=== PATIENT | female | born 1990 | race Caucasian/White ===

== ENCOUNTER 2017-01-21 09:47 | Emergency (ER) | payer OTHER ==
--- NOTE | 2017-01-21 10:51 | ED ORDER SUMMARY ---
..... Patient: FRANCOIS GRACE OrderSheet [facility] VisitID: [id number] [address] [place] [address] 26y, F Registration Date/Time: 01/21/2017 ORDER SHEET Weight: 95.2 kg (stated) Allergies: Amoxicillin, Clindamycin GENERAL ORDERS: Foot 3V Right Urgent (10:08 01/21/2017 Fernie Kevin) (Ack 10:12 Marla) (10:22 Marla) Ice (10:09 01/21/2017 Fernie Kevin) (10:10 Shiloh Chisholm.N.) Crutches (11:07 01/21/2017 Fernie Kevin) (11:08 Olga Chisholm.Asaf.) MEDICATION ORDERS: IV FLUIDS: ORDER SHEET NOTES: [Electronically signed by Amee Davis R.N. (11:16 01/21/2017)] [Electronically signed by Nikolay Sam Dr. (20:49 01/24/2017)] [Electronically locked/signed by Amee Davis R.N. (11:16 01/21/2017)]
--- NOTE | 2017-01-21 10:51 | ED CLINICAL REPORT ---
Clinical Report - Physicians/Mid Levels [facility] [address] [place] [address] 01/21/2017 9:49 Patient: FRANCOIS GRACE Time Seen: 1000. Arrived- By private vehicle. Historian- patient. HISTORY OF PRESENT ILLNESS Chief Complaint: Injury to the right foot. The injury happened yesterday. Fell down 2 stairs while standing. Occurred at home. ( accidentally kicked plastic file cabinet then fell down stairs. No LOC. No n/v, head injury or pain/injury to any other part of her body.). Patient is experiencing moderate pain. Patient denies injury to the head or neck. No other injury. REVIEW OF SYSTEMS The patient complains of pain on weight bearing. No tingling, weakness, numbness, suspected foreign body or skin laceration. All systems otherwise negative, except as recorded above. PAST HISTORY See nurses notes. Tetanus immunization status is up-to-date. SOCIAL HISTORY Never smoker. No alcohol use or drug use. No recent travel. 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 ADDITIONAL NOTES The nursing notes have been reviewed. PHYSICAL EXAM Vital Signs: 01/21/2017 09:57 BP: 128/79. HR: 72. RR: 18. O2 saturation: 98%. Temp: 99 F. Blood pressure normal. Oxygen saturation normal. Appearance: Alert. Oriented X3. No acute distress. Head: Head atraumatic. Eyes: Pupils equal, round and reactive to light. Eyes normal inspection. ENT: Ears normal. Nose normal. Pharynx normal. Neck: Normal inspection. Neck supple. C-spine non-tender. CVS: Normal heart rate and rhythm. Heart sounds normal. Pulses normal. Respiratory: No respiratory distress. Breath sounds normal. Chest nontender. Abdomen: No visible injury. Soft and nontender. Bowel sounds normal. No mass. Back: Normal inspection. No tenderness. ROM normal. Extremities: (mild tenderness to the distal dorsal foot over the 2 - 3 digits. no crepitus. no julian abnormalities, discoloration. Skin intact. Cap refill < 3 sec. Sensation intact. ROM normal but with some discomfort.). Neuro, Vascular and Tendons: Vascular status intact. Sensation intact. Motor intact. Tendon function intact. LABS, X-RAYS, AND EKG Rt Foot X-ray: (PROCEDURE: XR FOOT 3 VIEWS - RIGHT INDICATION: TRAUMA/INJURY TECHNIQUE: Three views. COMPARISON: None. FINDINGS: Osseous structures and joint spaces are normal. IMPRESSION: 1. Normal right foot.). Views: 3 view foot series. Technique: good. The X-rays were independently viewed by me, interpreted by the radiologist and discussed with the radiologist. PROGRESS AND PROCEDURES Course of Care: the patient is a pleasant 26 year old female presented for evaluation of right-sided foot pain. Differential diagnosis includesdislocation, fracture, or sprain. Patient is agreeable to the treatment plan. Pain medication has been offered. Radiographs ordered for thepatient'sinjury. Patient's workup does not show any acute osseous abnormalities. Had discussion patient in regards to symptoms here in the emergency department as well as workup, diagnosis as well as home care and follow-up as well as return precautions. All cultures have been answered. The patient expressed understanding of these instructions and was agreeable to them. Prior to patient's discharge is noted to be neurovascularly intact. No acute other maladies. Patient is resting in bed and in no acute distress. Patient is stable outpatient candidate. Disposition: Discharged. Condition: good. CLINICAL IMPRESSION 01/21/2017 09:57 BP: 128/79. HR: 72. RR: 18. O2 saturation: 98%. Temp: 99 F. Sprain (acute). INSTRUCTIONS Warnings: GENERAL WARNINGS: Return or contact your physician immediately if your condition worsens or changes unexpectedly, if not improving as expected, or if other problems arise. Specifically return if pain, vomiting, bleeding, breathing difficulty or fever. Your Current Medications: CONTINUE TAKING THE FOLLOWING MEDICATIONS: None*. OTC Medications: Acetaminophen (available over the counter): take according to label instructions. Motrin (available over the counter): take according to label instructions. Follow-up: Return to the emergency department as needed. Follow up with your doctor in three days. Reason for referral: recheck today's concerns. Summary of care provided to patient via paper. Screening today revealed the patient's blood pressure to be in the normal range. The patient should follow up with a primary care provider for blood pressure management. Understanding of the discharge instructions verbalized by patient. (Electronically signed by Nikolay Sam Dr. 01/24/2017 20:49) Chaka fernandez LESLYFRANCOIS VisitID: [id number] Date: 01/21/2017 01/21/2017 11:48 Patient fit with new crutches. Crutch training performed by tech; the patient demonstrated proper use (Electronically signed by Jessica Morris 01/21/2017 11:48)
--- NOTE | 2017-01-21 10:51 | ED NURSING NOTES ---
Clinical Report - Nurses [place] [address] [place] [address] 01/21/2017 9:49 [id number] TRI[facility] Triage time 09:57 Jan 21 2017. Acuity: LEVEL 3. Chief Complaint: INJURY TO RIGHT FOOT. GIANNA COMA SCORE: [place] Coma Scale: 15- eyes open spontaneously (4); best verbal response- oriented x 4 (5); best motor response- obeys commands (6). --10:03 Cristiano Rudolph R.N. 09:57 01/21/17. BP: 128/79. HR: 72. RR: 18. O2 saturation: 98%. Temp: 99 F. Pain level now 02/01. --10:03 Cristiano Rudolph R.N. Weight: 95.2 kg stated. Height/Length: 65 inches Per Patient. BMI: 35. --10:02 Cristiano Rudolph R.N. Medications None. --09:59 Cristiano Rudolph R.N. Allergies Amoxicillin. Clindamycin. --09:59 Cristiano Rudolph R.N. History Arrived by private vehicle. Historian: patient. Accompanied by family. Primary physician ([facility]). This occurred last night. Occurred at home. Mechanism of injury: fell. ( Kicked a plastic filing cabinet and hurt toes then tripped over a stair from the pain and hurt the top of her foot.). She has had trouble walking. The patient has been limping when trying to walk. No numbness, tingling, weakness, neck pain or back pain. Treatment CHARTERED ACCOUNTANT: None. PAST MEDICAL HX: Tetanus status: up-to-date. Immunizations: up-to-date. SOCIAL HX: Smoker- current status unknown. No alcohol use or drug use. SELF HARM ASSESSMENT: A self harm assessment was performed. The patient answered "no" to the question "Have you recently felt down, depressed, or hopeless?" and "Do you have thoughts of harming or killing yourself?". FALL RISK ASSESSMENT: Fall risk assessment completed. No fall risk identified. NUTRITIONAL RISK ASSESSMENT: The nutritional risk assessment revealed no deficiencies. FUNCTIONAL ASSESSMENT: Functional assessment: no impairments noted. LEARNING NEEDS ASSESSMENT: The learning needs assessment revealed no barriers. ABUSE ASSESSMENT: Abuse assessment: (yes) The patient was asked "Do you feel safe in your home?". SKIN INTEGRITY ASSESSMENT: Skin integrity risk assessment completed. No skin integrity risk identified. --10: Cristiano Rudolph R.N. PROBLEMS: Lumbar Strain. --:59 Cristiano Rudolph R.N. ADDITIONAL SURGERIES: . IUD went into liver. Tubal Ligation. --: Cristiano Rudolph R.N. Interventions ID band on patient. --10: Cristiano Rudolph R.N. PHYSICAL ASSESSMENT Ambulatory to room. GENERAL / NEURO / PSYCH: Oriented X 4. Appears in pain. EXTREMITIES: Capillary refill is less than 2 seconds in the extremities. Extremity pulses are within normal limits. Extremities exhibit normal ROM. Pain with weight bearing. Neuro-vascular status intact to the extremity. Right foot: tenderness. SKIN: Skin intact. Skin is warm and dry. --10:04 Cristiano Rudolph R.N. NURSING PROGRESS NOTES Cold pack applied. Extremity elevated. Reassurance given. Call light placed in reach. Side rails up x 1. Bed placed in lowest position. --10:04 Cristiano Rudolph R.N. DISPOSITION / DISCHARGE Departure time: 11:12 Jan 21 2017. Condition at departure: improved. No learning barriers present. Discharge instructions provided and reviewed with the patient. Reviewed crutch walking instructions. Patient verbalized understanding. Written instructions provided in Syriac. The patient was discharged by the physician. She was discharged home and accompanied by son. She left the Emergency Department ambulatory and via private vehicle. Patient driving. ( Patient has no further questions, she was fitted to her crutches). --11:12 Amee Davis R.N. 11:08 01/21/17. BP: 130/89 (regular adult cuff) taken on the left arm, while sitting. HR: 85. RR: 16 (regular). O2 saturation: 99% on room air. Temp: 98.4 F (oral). Pain level now: 02/01. --11:12 Amee Davis R.N. Locked/Released at 01/21/2017 11:16 by Amee Davis R.N.
--- NOTE | 2017-01-21 10:51 | ED NURSING NOTES ---
Clinical Report - Nurses [place] [address] [place] [address] 01/21/2017 9:49 [id number] Triage time 09:57 Jan 21 2017. Acuity: LEVEL 3. Chief Complaint: INJURY TO RIGHT FOOT. GIANNA COMA SCORE: [place] Coma Scale: 15- eyes open spontaneously (4); best verbal response- oriented x 4 (5); best motor response- obeys commands (6). --10:03 Cristiano Rudolph R.N. 09:57 01/21/17. BP: 128/79. HR: 72. RR: 18. O2 saturation: 98%. Temp: 99 F. Pain level now 02/01. --10:03 Cristiano Rudolph R.N. Weight: 95.2 kg stated. Height/Length: 65 inches Per Patient. BMI: 35. --10:02 Cristiano Rudolph R.N. Medications None. --09:59 Cristiano Rudolph R.N. Allergies Amoxicillin. Clindamycin. --09:59 Cristiano Rudolph R.N. History Arrived by private vehicle. Historian: patient. Accompanied by family. Primary physician ([facility] [facility]). This occurred last night. Occurred at home. Mechanism of injury: fell. ( Kicked a plastic filing cabinet and hurt toes then tripped over a stair from the pain and hurt the top of her foot.). She has had trouble walking. The patient has been limping when trying to walk. No numbness, tingling, weakness, neck pain or back pain. Treatment MOBILE DEVICE DEVELOPER: None. PAST MEDICAL HX: Tetanus status: up-to-date. Immunizations: up-to-date. SOCIAL HX: Smoker- current status unknown. No alcohol use or drug use. SELF HARM ASSESSMENT: A self harm assessment was performed. The patient answered "no" to the question "Have you recently felt down, depressed, or hopeless?" and "Do you have thoughts of harming or killing yourself?". FALL RISK ASSESSMENT: Fall risk assessment completed. No fall risk identified. NUTRITIONAL RISK ASSESSMENT: The nutritional risk assessment revealed no deficiencies. FUNCTIONAL ASSESSMENT: Functional assessment: no impairments noted. LEARNING NEEDS ASSESSMENT: The learning needs assessment revealed no barriers. ABUSE ASSESSMENT: Abuse assessment: (yes) The patient was asked "Do you feel safe in your home?". SKIN INTEGRITY ASSESSMENT: Skin integrity risk assessment completed. No skin integrity risk identified. --10: Cristiano Rudolph R.N. PROBLEMS: Lumbar Strain. --:59 Cristiano Rudolph R.N. ADDITIONAL SURGERIES: . IUD went into liver. Tubal Ligation. --: Cristiano Rudolph R.N. Interventions ID band on patient. --10: Cristiano Rudolph R.N. PHYSICAL ASSESSMENT Ambulatory to room. GENERAL / NEURO / PSYCH: Oriented X 4. Appears in pain. EXTREMITIES: Capillary refill is less than 2 seconds in the extremities. Extremity pulses are within normal limits. Extremities exhibit normal ROM. Pain with weight bearing. Neuro-vascular status intact to the extremity. Right foot: tenderness. SKIN: Skin intact. Skin is warm and dry. --10:04 Cristiano Rudolph R.N. NURSING PROGRESS NOTES Cold pack applied. Extremity elevated. Reassurance given. Call light placed in reach. Side rails up x 1. Bed placed in lowest position. --10:04 Cristiano Rudolph R.N. DISPOSITION / DISCHARGE Departure time: 11:12 Jan 21 2017. Condition at departure: improved. No learning barriers present. Discharge instructions provided and reviewed with the patient. Reviewed crutch walking instructions. Patient verbalized understanding. Written instructions provided in Lao. The patient was discharged by the physician. She was discharged home and accompanied by son. She left the Emergency Department ambulatory and via private vehicle. Patient driving. ( Patient has no further questions, she was fitted to her crutches). --11:12 Amee Davis R.N. 11:08 01/21/17. BP: 130/89 (regular adult cuff) taken on the left arm, while sitting. HR: 85. RR: 16 (regular). O2 saturation: 99% on room air. Temp: 98.4 F (oral). Pain level now: 02/01. --11:12 Amee Davis R.N. Locked/Released at 01/21/2017 11:16 by Amee Davis R.N.
--- NOTE | 2017-01-21 10:51 | ED CLINICAL REPORT ---
Clinical Report - Physicians/Mid Levels [facility] [address] [place] [address] 01/21/2017 9:49 Patient: FRANCOIS GRACE Time Seen: 1000. Arrived- By private vehicle. Historian- patient. HISTORY OF PRESENT ILLNESS Chief Complaint: Injury to the right foot. The injury happened yesterday. Fell down 2 stairs while standing. Occurred at home. ( accidentally kicked plastic file cabinet then fell down stairs. No LOC. No n/v, head injury or pain/injury to any other part of her body.). Patient is experiencing moderate pain. Patient denies injury to the head or neck. No other injury. REVIEW OF SYSTEMS The patient complains of pain on weight bearing. No tingling, weakness, numbness, suspected foreign body or skin laceration. All systems otherwise negative, except as recorded above. PAST HISTORY See nurses notes. Tetanus immunization status is up-to-date. SOCIAL HISTORY Never smoker. No alcohol use or drug use. No recent travel. 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 ADDITIONAL NOTES The nursing notes have been reviewed. PHYSICAL EXAM Vital Signs: 01/21/2017 09:57 BP: 128/79. HR: 72. RR: 18. O2 saturation: 98%. Temp: 99 F. Blood pressure normal. Oxygen saturation normal. Appearance: Alert. Oriented X3. No acute distress. Head: Head atraumatic. Eyes: Pupils equal, round and reactive to light. Eyes normal inspection. ENT: Ears normal. Nose normal. Pharynx normal. Neck: Normal inspection. Neck supple. C-spine non-tender. CVS: Normal heart rate and rhythm. Heart sounds normal. Pulses normal. Respiratory: No respiratory distress. Breath sounds normal. Chest nontender. Abdomen: No visible injury. Soft and nontender. Bowel sounds normal. No mass. Back: Normal inspection. No tenderness. ROM normal. Extremities: (mild tenderness to the distal dorsal foot over the 2 - 3 digits. no crepitus. no julian abnormalities, discoloration. Skin intact. Cap refill < 3 sec. Sensation intact. ROM normal but with some discomfort.). Neuro, Vascular and Tendons: Vascular status intact. Sensation intact. Motor intact. Tendon function intact. LABS, X-RAYS, AND EKG Rt Foot X-ray: (PROCEDURE: XR FOOT 3 VIEWS - RIGHT INDICATION: TRAUMA/INJURY TECHNIQUE: Three views. COMPARISON: None. FINDINGS: Osseous structures and joint spaces are normal. IMPRESSION: 1. Normal right foot.). Views: 3 view foot series. Technique: good. The X-rays were independently viewed by me, interpreted by the radiologist and discussed with the radiologist. PROGRESS AND PROCEDURES Course of Care: the patient is a pleasant 26 year old female presented for evaluation of right-sided foot pain. Differential diagnosis includesdislocation, fracture, or sprain. Patient is agreeable to the treatment plan. Pain medication has been offered. Radiographs ordered for thepatient'sinjury. Patient's workup does not show any acute osseous abnormalities. Had discussion patient in regards to symptoms here in the emergency department as well as workup, diagnosis as well as home care and follow-up as well as return precautions. All cultures have been answered. The patient expressed understanding of these instructions and was agreeable to them. Prior to patient's discharge is noted to be neurovascularly intact. No acute other maladies. Patient is resting in bed and in no acute distress. Patient is stable outpatient candidate. Disposition: Discharged. Condition: good. CLINICAL IMPRESSION 01/21/2017 09:57 BP: 128/79. HR: 72. RR: 18. O2 saturation: 98%. Temp: 99 F. Sprain (acute). INSTRUCTIONS Warnings: GENERAL WARNINGS: Return or contact your physician immediately if your condition worsens or changes unexpectedly, if not improving as expected, or if other problems arise. Specifically return if pain, vomiting, bleeding, breathing difficulty or fever. Your Current Medications: CONTINUE TAKING THE FOLLOWING MEDICATIONS: None*. OTC Medications: Acetaminophen (available over the counter): take according to label instructions. Motrin (available over the counter): take according to label instructions. Follow-up: Return to the emergency department as needed. Follow up with your doctor in three days. Reason for referral: recheck today's concerns. Summary of care provided to patient via paper. Screening today revealed the patient's blood pressure to be in the normal range. The patient should follow up with a primary care provider for blood pressure management. Understanding of the discharge instructions verbalized by patient. (Electronically signed by Nikolay Sam Dr. 01/24/2017 20:49) Chaka fernandez LESLYFRANCOIS VisitID: [id number] Date: 01/21/2017 01/21/2017 11:48 Patient fit with new crutches. Crutch training performed by tech; the patient demonstrated proper use (Electronically signed by Jessica Morris 01/21/2017 11:48)
--- NOTE | 2017-01-21 10:51 | ED ORDER SUMMARY ---
..... Patient: FRANCOIS GRACE [facility] VisitID: [id number] [address] [place] [address] 26y, F Registration Date/Time: 01/21/2017 ORDER SHEET Weight: 95.2 kg (stated) Allergies: Amoxicillin, Clindamycin GENERAL ORDERS: Foot 3V Right Urgent (10:08 01/21/2017 Fernie Kevin) (Ack 10:12 Marla) (10:22 Marla) Ice (10:09 01/21/2017 Fernie Kevin) (10:10 Shiloh Chisholm.N.) Crutches (11:07 01/21/2017 Fernie Kevin) (11:08 Olga Chisholm.Asaf.) MEDICATION ORDERS: IV FLUIDS: ORDER SHEET NOTES: [Electronically signed by Amee Davis R.N. (11:16 01/21/2017)] [Electronically signed by Nikolay Sam Dr. (20:49 01/24/2017)] [Electronically locked/signed by Amee Davis R.N. (11:16 01/21/2017)]
--- NOTE | 2017-01-24 20:49 | ED MAR SUMMARY ---
..... Medication Administration Record [facility] [address], [place] [id number] Patient: FRANCOIS GRACE Visit ID: [id number] 26y, F Weight: 95.2 kg Height/Length: 65 in BMI: 35 ALLERGIES: Amoxicillin, Clindamycin
--- NOTE | 2017-01-24 20:49 | ED MED RECONCILIATION SUMMARY ---
Patient: FRANCOIS GRACE Medication Reconciliation Report [facility] VisitID: [id number] [address] [place] [address] 26y, F Registration Date/Time: 01/21/2017 Weight: 95.2 kg Height/Length: 65 in. BMI: 35.0 ALLERGIES: Amoxicillin, Clindamycin The patient's Home Medications are listed below: NONE. The source(s) of the original Home Medication information: Not obtained. The following Medications were given to the patient in the Emergency Department: None. The following Medications were prescribed to the patient: Acetaminophen (available over the counter): take according to label instructions. -- Nikolay Sam Dr. Motrin (available over the counter): take according to label instructions. -- Nikolay Sam Dr.
--- NOTE | 2017-01-24 20:49 | ED MAR SUMMARY ---
..... Medication Administration Record [facility] [address], [place] [id number] Patient: FRANCOIS GRACE Visit ID: [id number] 26y, F Weight: 95.2 kg Height/Length: 65 in BMI: 35 ALLERGIES: Amoxicillin, Clindamycin
--- NOTE | 2017-01-24 20:49 | ED DISCHARGE INSTRUCTIONS ---
Patient: FRANCOIS GRACE General Instructions [facility] VisitID: [id number] [place] [address] 26y, F Registration Date/Time: 01/21/2017 01/21/2017 09:57 BP: 128/79. HR: 72. RR: 18. O2 saturation: 98%. Temp: 99 F. Sprain (acute). INSTRUCTIONS Warnings: GENERAL WARNINGS: Return or contact your physician immediately if your condition worsens or changes unexpectedly, if not improving as expected, or if other problems arise. Specifically return if pain, vomiting, bleeding, breathing difficulty or fever. Your Current Medications: CONTINUE TAKING THE FOLLOWING MEDICATIONS: None*. OTC Medications: Acetaminophen (available over the counter): take according to label instructions. Motrin (available over the counter): take according to label instructions. Follow-up: Return to the emergency department as needed. Follow up with your doctor in three days. Reason for referral: recheck today's concerns. Summary of care provided to patient via paper. Screening today revealed the patient's blood pressure to be in the normal range. The patient should follow up with a primary care provider for blood pressure management. Understanding of the discharge instructions verbalized by patient. ADDITIONAL INFORMATION Sprain, Foot A sprain is a stretching or tearing of the ligaments that hold a joint together. There are no broken bones. Sprains take from 36 weeks to heal. A sprain may be treated with a splint, walking cast or special boot. Mild sprains may not require any additional support. Home care The following guidelines will help you care for your injury at home: Keep your leg elevated when sitting or lying down. This is very important during the first 48 hours to reduce swelling. Stay off the injured foot as much as possible until you can walk on it without pain. If needed, you may use crutches during the first week for this purpose. (Crutches can be rented at many pharmacies or surgical/orthopedic supply stores). You may be given a cast shoe to wear to prevent movement in your foot. If not, you can use a sandal or any shoe that does not put pressure on the injured area until the swelling and pain go away. If using a sandal, be careful not to strike your foot against anything, since another injury could make the sprain worse. Apply an ice pack (ice cubes in a plastic bag, wrapped in a towel) over the injured area for 20 minutes every 12 hours the first day. You should continue with ice packs 34 times a day for the next two days. Continue the use of ice packs for relief of pain and swelling as needed. You may use acetaminophen or ibuprofen to control pain, unless another medicine was prescribed. If you have chronic liver or kidney disease or ever had a stomach ulcer or GI bleeding, talk with your doctor before using these medicines. If you were given a splint or cast, keep it dry. Bathe with your splint/cast well out of the water, protected with a large plastic bag, rubber-banded at the top end. If a fiberglass splint or cast gets wet, you can dry it with a hair-dryer. You may return to sports after healing, when you can run without pain. Follow-up care Follow up with your doctor as directed. Any X-rays you had today dont show any broken bones, breaks, or fractures. Sometimes fractures dont show up on the first X-ray. Bruises and sprains can sometimes hurt as much as a fracture. These injuries can take time to heal completely. If your symptoms dont improve or they get worse, talk with your doctor. You may need a repeat X-ray. When to seek medical care Get prompt medical attention if any of the following occur: The plaster cast or splint gets wet or soft The fiberglass cast or splint gets wet and does not dry for 24 hours Pain or swelling increases, or redness appears Toes become cold, blue, numb, or tingly Sprain, Toe You have a sprain which is a stretching or tearing of the ligaments that hold a joint together. There are no broken bones. Sprains take from 36 weeks to heal. A toe sprain may be treated by taping the injured toe to the next toe ("moriah taping"). This protects the injured toe and holds it in position. A minor sprain may not require any additional support. If the toenail has been severely injured, it may fall off in 12 weeks. A new one will usually start to grow back within a month. Home care The following guidelines will help you care for your injury at home: 1) Keep your leg elevated when sitting or lying down. This is very important during the first 48 hours to reduce swelling. Stay off the injured foot as much as possible until you can walk on it without pain. If needed, you may use crutches during the first week for this purpose. (Crutches can be rented at many pharmacies or surgical/orthopedic supply stores). 2) You may be given a cast shoe to wear to prevent movement in your toe. If not, you can use a sandal or any shoe that does not put pressure on the injured toe until the swelling and pain go away. If using a sandal, be careful not to strike your foot against anything, since another injury could make the sprain worse. 3) Apply an ice pack (ice cubes in a plastic bag, wrapped in a towel) over the injured area for 20 minutes every 12 hours the first day. You should continue with ice packs 34 times a day for the next two days. Continue the use of ice packs for relief of pain and swelling as needed. 4) If moriah tape was applied and it becomes wet or dirty, change it. You may replace it with paper, plastic or cloth tape. Cloth tape and paper tapes must be kept dry. Keep the moriah tape in place for at least four weeks. 5) You may use acetaminophen or ibuprofen to control pain, unless another pain medicine was prescribed.If you have chronic liver or kidney disease or ever had a stomach ulcer or GI bleeding, talk with your doctor before using these medicines.] 6) You may return to sports after healing, when you can run without pain. Follow-up care Follow up with your doctor or this facility as advised. Any X-rays you had today dont show any broken bones, breaks, or fractures. Sometimes fractures dont show up on the first X-ray. Bruises and sprains can sometimes hurt as much as a fracture. These injuries can take time to heal completely. If your symptoms dont improve or they get worse, talk with your doctor. You may need a repeat X-ray. When to seek medical care Get prompt medical attention if any of the following occur: Redness, warmth, or fluid drainage from your toe Pain or swelling increases Toes become cold, blue, numb, or tingly You have been given the following additional information: Sprain, Foot Sprain Toe (Electronically signed by Nikolay Sam Dr. 01/24/2017 20:49)
--- NOTE | 2017-01-24 20:49 | ED MED RECONCILIATION SUMMARY ---
Patient: FRANCOIS GRACE Medication Reconciliation Report [facility] VisitID: [id number] [address] [place] [address] 26y, F Registration Date/Time: 01/21/2017 Weight: 95.2 kg Height/Length: 65 in. BMI: 35.0 ALLERGIES: Amoxicillin, Clindamycin The patient's Home Medications are listed below: NONE. The source(s) of the original Home Medication information: Not obtained. The following Medications were given to the patient in the Emergency Department: None. The following Medications were prescribed to the patient: Acetaminophen (available over the counter): take according to label instructions. -- Nikolay Sam Dr. Motrin (available over the counter): take according to label instructions. -- Nikolay Sam Dr.
== END 2017-01-21 11:12 | disposition home or self-care (01) ==
LOC: ED SRH 09:47
DX: S93.601A Unspecified sprain of right foot, initial encounter (principal); W10.9XXA Fall (on) (from) unspecified stairs and steps, initial encounter; Y93.89 Activity, other specified; Y92.009 Unspecified place in unspecified non-institutional (private) residence as the place of occurrence of the external cause; Y99.9 Unspecified external cause status; Z88.0 Allergy status to penicillin; Z88.8 Allergy status to other drugs, medicaments and biological substances